=== PATIENT | female | born 1950 | race Caucasian/White ===

== ENCOUNTER → 2023-03-13 | Outpatient (CLI) | payer MEDICARE, MEDICAID ==
[2023-03-13 09:03] LABS: BASO # 0.1 10*3/uL (0.0-0.1); BASO % 0.7 % (0.0-1.0); EOS # 0.2 10*3/uL (0.0-0.4); HEMATOCRIT 40.6 % (37.0-47.0); LYMPH % 24.8 % (27.0-41.0); MEAN CELL VOLUME 93.3 fl (81.0-99.0); MEAN PLATELET VOLUME 9.1 fl (9.6-12.3); MONO # 0.7 10*3/uL (0.1-1.0); NEUT # 5.1 10*3/uL (2.3-7.9); PLATELET COUNT AUTOMATED 349 10*3/uL (130-400); RED BLOOD COUNT 4.35 10*6/uL (4.10-5.10); RED CELL DISTRI WIDTH 15.1 % (0-14.5)
[2023-03-13 09:38] LABS: POTASSIUM 4.1 mmol/L (3.4-5.1); TOTAL PROTEIN 7.5 gm/dL (6.0-8.0)
[2023-03-13 09:39] LABS: VITAMIN D, 25-HYDROXY 14.9 ng/mL (30-100)
== END | disposition home or self-care (01) ==
LOC: ZFOXEL 12:00
PROVIDERS: ATTEND Family Medicine
DX: I10 Essential (primary) hypertension (principal); D51.9 Vitamin B12 deficiency anemia, unspecified; D64.9 Anemia, unspecified; E55.9 Vitamin D deficiency, unspecified

== ENCOUNTER → 2023-03-20 | Outpatient (CLI) | payer MEDICARE, MEDICAID ==
[2023-03-20 09:02] LABS: BASO # 0.1 10*3/uL (0.0-0.1); BASO % 0.7 % (0.0-1.0); EOS # 0.1 10*3/uL (0.0-0.4); EOS % 1.6 % (1.0-4.0); HEMATOCRIT 37.3 % (37.0-47.0); LYMPH # 2.1 10*3/uL (1.3-4.4); LYMPH % 25.7 % (27.0-41.0); MEAN CELL VOLUME 90.5 fl (81.0-99.0); MEAN CORPUSCULAR HGB 29.6 pg (27.0-31.0); MEAN CORPUSCULAR HGB CONC 32.7 g/dl (33.0-37.0); MEAN PLATELET VOLUME 9.3 fl (9.6-12.3); MONO # 0.8 10*3/uL (0.1-1.0); MONO % 10.2 % (3.0-9.0); NEUT % 61.4 % (47.0-73.0); PLATELET COUNT AUTOMATED 313 10*3/uL (130-400); RED BLOOD COUNT 4.12 10*6/uL (4.10-5.10); RED CELL DISTRI WIDTH 15.1 % (0-14.5); WHITE BLOOD COUNT 8.1 10*3/uL (4.8-10.8)
[2023-03-20 10:02] LABS: POTASSIUM 4.6 mmol/L (3.4-5.1); TOTAL PROTEIN 6.4 gm/dL (6.0-8.0)
== END | disposition home or self-care (01) ==
LOC: ZFOXEL 12:00
PROVIDERS: ATTEND Family Medicine
DX: K51.90 Ulcerative colitis, unspecified, without complications (principal); I50.9 Heart failure, unspecified; D64.9 Anemia, unspecified; D51.9 Vitamin B12 deficiency anemia, unspecified; M32.9 Systemic lupus erythematosus, unspecified; E55.9 Vitamin D deficiency, unspecified

== ENCOUNTER 2023-11-17 09:20 | Emergency (ER) | payer MEDICARE ==
[~2023-11-17] VITALS: Ht 167.6 cm; Wt 90.7 kg
[~2023-11-17 09:20] MED LIST: 8 HOUR650 MG PO; ALBUTEROL2.5 MG/0.5 INH; ALEVE ARTHRITI100 GM SC; AMLODIPINE BESY10 MG PO; ANBESOL9 GM MM; AVPAK AZITHROM250 M1 PO; B121000 MCG/1 IM; BUSPIRONE10 MG PO; CEFDINIR300 MG PO; CHOLECALCIFEROL1 GM PO; CLOPIDOGREL75 MG PO; COREG6.25 MG PO; DICYCLOMINE HYD10 MG PO; EFFEXOR XR75 M1 PO; FERRETTS325 M1 PO; FUROSEMIDE40 MG PO; GAVISCON ES TA1 EACH PO; GLIMEPIRIDE4 M1 PO; HUMALOG KW200 UNIT/1; IMODIUM A-D2 M2 PO; INSULIN GL300 UNIT/1 SQ; ISOSORBIDE DINI30 MG PO; MAGNESIUM250 M3 PO; MESALAMINE DR400 MG PO; MONTELUKAST SOD10 MG PO; NATURE'S BLEND F1 MG PO; ONDANSETRON HYDR4 M1 PO; OXYCODON-ACETA1 EACH PO; POTASSIUM CHLO10 MEQ PO; PROTONIX40 MG PO; RANOLAZINE ER500 MG PO; SIMVASTATIN20 MG PO
[2023-11-17 09:45] LABS: BASO # 0.1 10*3/uL (0.0-0.1); BASO % 0.6 % (0.0-1.0); EOS # 0.1 10*3/uL (0.0-0.4); EOS % 1.4 % (1.0-4.0); HEMATOCRIT 38.4 % (37.0-47.0); LYMPH # 1.7 10*3/uL (1.3-4.4); LYMPH % 20.4 % (27.0-41.0); MEAN CELL VOLUME 94.8 fl (81.0-99.0); MEAN CORPUSCULAR HGB 31.4 pg (27.0-31.0); MEAN CORPUSCULAR HGB CONC 33.1 g/dl (33.0-37.0); MEAN PLATELET VOLUME 8.7 fl (9.6-12.3); MONO # 0.8 10*3/uL (0.1-1.0); MONO % 9.2 % (3.0-9.0); NEUT # 5.5 10*3/uL (2.3-7.9); NEUT % 67.8 % (47.0-73.0); PLATELET COUNT AUTOMATED 251 10*3/uL (130-400); RED BLOOD COUNT 4.05 10*6/uL (4.10-5.10); RED CELL DISTRI WIDTH 12.4 % (0-14.5); WHITE BLOOD COUNT 8.1 10*3/uL (4.8-10.8)
[2023-11-17 10:06] LABS: POTASSIUM 4.2 mmol/L (3.4-5.1); TOTAL PROTEIN 6.5 gm/dL (6.0-8.0)
== END 2023-11-17 12:30 | disposition home or self-care (01) ==
LOC: ED 09:20
PROVIDERS: Internal Medicine
DX: R07.89 Other chest pain (principal); Z53.29 Procedure and treatment not carried out because of patient's decision for other reasons; Z88.2 Allergy status to sulfonamides; Z88.1 Allergy status to other antibiotic agents; Z88.8 Allergy status to other drugs, medicaments and biological substances; Z90.49 Acquired absence of other specified parts of digestive tract; Z90.89 Acquired absence of other organs; Z98.890 Other specified postprocedural states; F32.A Depression, unspecified; F41.9 Anxiety disorder, unspecified; M19.90 Unspecified osteoarthritis, unspecified site; F03.90 Unspecified dementia, unspecified severity, without behavioral disturbance, psychotic disturbance, mood disturbance, and anxiety; E11.9 Type 2 diabetes mellitus without complications; J44.9 Chronic obstructive pulmonary disease, unspecified; E78.5 Hyperlipidemia, unspecified

== ENCOUNTER 2024-01-20 12:27 | Emergency (ER) | payer MEDICARE ==
[~2024-01-20] VITALS: Ht 167.6 cm; Wt 98.4 kg
[2024-01-20] MEDS ORDERED: Ondansetron Hydrochloride 4 MG/2 ML VIAL IV ONE (12:40)
[2024-01-20] MEDS ORDERED: MORPHINE Sulfate 2 MG/ML SYR IV ONE (12:40)
[2024-01-20 13:04] LABS: BASO % 0.5 % (0.0-1.0); EOS # 0.2 10*3/uL (0.0-0.4); HEMATOCRIT 38.2 % (37.0-47.0); LYMPH # 2.6 10*3/uL (1.3-4.4); LYMPH % 32.1 % (27.0-41.0); MEAN CELL VOLUME 93.4 fl (81.0-99.0); MEAN CORPUSCULAR HGB 30.8 pg (27.0-31.0); MEAN PLATELET VOLUME 8.7 fl (9.6-12.3); MONO # 1.2 10*3/uL (0.1-1.0); MONO % 14.5 % (3.0-9.0); NEUT # 4.1 10*3/uL (2.3-7.9); PLATELET COUNT AUTOMATED 274 10*3/uL (130-400); RED BLOOD COUNT 4.09 10*6/uL (4.10-5.10); WHITE BLOOD COUNT 8.2 10*3/uL (4.8-10.8)
[2024-01-20 13:27] LABS: POTASSIUM 4.1 mmol/L (3.4-5.1); TOTAL PROTEIN 6.8 gm/dL (6.0-8.0)
[2024-01-20] MEDS ORDERED: Ipratropium Brom3 ML INH (16:58)
[2024-01-20] MEDS ORDERED: VALSARTAN40 MG PO (17:00)
== END 2024-01-20 15:33 | disposition home or self-care (01) ==
LOC: ED 12:27
PROVIDERS: Emergency Medicine
DX: R07.89 Other chest pain (principal); I50.9 Heart failure, unspecified; E78.5 Hyperlipidemia, unspecified; J44.9 Chronic obstructive pulmonary disease, unspecified; F32.A Depression, unspecified; F41.9 Anxiety disorder, unspecified; E11.22 Type 2 diabetes mellitus with diabetic chronic kidney disease; I13.0 Hypertensive heart and chronic kidney disease with heart failure and stage 1 through stage 4 chronic kidney disease, or unspecified chronic kidney disease; N18.9 Chronic kidney disease, unspecified; F03.90 Unspecified dementia, unspecified severity, without behavioral disturbance, psychotic disturbance, mood disturbance, and anxiety; M19.90 Unspecified osteoarthritis, unspecified site; Z88.0 Allergy status to penicillin; Z88.2 Allergy status to sulfonamides; Z88.1 Allergy status to other antibiotic agents; Z88.8 Allergy status to other drugs, medicaments and biological substances; Z90.49 Acquired absence of other specified parts of digestive tract; Z90.89 Acquired absence of other organs; Z98.890 Other specified postprocedural states

== ENCOUNTER 2024-01-20 16:11 | Observation (INO) | payer MEDICARE ==
[~2024-01-20] VITALS: Ht 167.6 cm; Wt 101.6 kg
[2024-01-20 16:52] VITALS: BP 92/83
[2024-01-20] MEDS ORDERED: Ipratropium Brom3 ML INH (16:58)
[2024-01-20] MEDS ORDERED: VALSARTAN40 MG PO (17:00)
[2024-01-20] MEDS ORDERED: MORPHINE Sulfate 2 MG/ML SYR IV PRN (17:15)
[2024-01-20] MEDS ORDERED: BISACODYL 10 MG SUPP R PRN (17:15)
[2024-01-20] MEDS ORDERED: Magnesium Hydroxide 30 ML UDC PO PRN (17:15)
[2024-01-20] MEDS ORDERED: BISACODYL 5 MG TAB PO PRN (17:15)
[2024-01-20] MEDS ORDERED: ACETAMINOPHEN 325 MG TAB PO PRN (17:15)
[2024-01-20] MEDS ORDERED: Acetaminophen/Hydrocodone 5 MG/325 MG TABLET PO PRN (17:15)
[2024-01-20] MEDS ORDERED: SODIUM CHLORIDE 0.9% 1,000 ML IV ONE (17:30)
[2024-01-20] MEDS ORDERED: DEXTROSE 10 % IN WATER 250 ML IV PRN (17:30)
[2024-01-20] MEDS ORDERED: Pantoprazole Sodium 20 MG TAB PO SCH (18:00)
[2024-01-20] MEDS ORDERED: SUCRALFATE 1 GM TAB PO SCH (22:00)
[2024-01-20] MEDS ORDERED: INSULIN LISPRO 1 UNIT/0.01 ML SQ SCH (22:00)
[2024-01-20 22:37] VITALS: BP 108/60
[2024-01-20 23:42] VITALS: BP 106/48
[2024-01-21 02:25] VITALS: BP 129/74
[2024-01-21 05:21] LABS: POTASSIUM 4.6 mmol/L (3.4-5.1)
[2024-01-21 06:07] LABS: BASO # 0.1 10*3/uL (0.0-0.1); BASO % 0.7 % (0.0-1.0); EOS # 0.2 10*3/uL (0.0-0.4); EOS % 2.9 % (1.0-4.0); HEMATOCRIT 37.2 % (37.0-47.0); LYMPH # 2.4 10*3/uL (1.3-4.4); LYMPH % 32.5 % (27.0-41.0); MEAN CELL VOLUME 93.9 fl (81.0-99.0); MEAN CORPUSCULAR HGB 31.3 pg (27.0-31.0); MEAN CORPUSCULAR HGB CONC 33.3 g/dl (33.0-37.0); MEAN PLATELET VOLUME 9.3 fl (9.6-12.3); MONO # 1.1 10*3/uL (0.1-1.0); MONO % 14.5 % (3.0-9.0); NEUT # 3.5 10*3/uL (2.3-7.9); NEUT % 48.6 % (47.0-73.0); PLATELET COUNT AUTOMATED 277 10*3/uL (130-400); RED BLOOD COUNT 3.96 10*6/uL (4.10-5.10); RED CELL DISTRI WIDTH 13.2 % (0-14.5); WHITE BLOOD COUNT 7.3 10*3/uL (4.8-10.8)
[2024-01-21] MEDS ORDERED: SODIUM CHLORIDE 0.9% 1,000 ML IV ONE (07:55)
[2024-01-21 09:38] VITALS: BP 124/79
[2024-01-21] MEDS ORDERED: Enoxaparin Sodium 40 MG/0.4 ML SYR SC SCH (10:00)
[2024-01-21] MEDS ORDERED: DICLOFENAC SODIUM 100 GM TUBE T PRN (21:10)
[2024-01-21] MEDS ORDERED: [UNRECOGNIZED DRUG - OTHER] PO PRN (21:10)
[2024-01-21] MEDS ORDERED: [UNRECOGNIZED DRUG - OTHER] T PRN (21:10)
[2024-01-21] MEDS ORDERED: MAGNESIUM CARBONATE PO PRN (21:10)
[2024-01-21] MEDS ORDERED: Loperamide Hydrochloride 2 MG CAP PO PRN (21:10)
[2024-01-21] MEDS ORDERED: Ondansetron Hydrochloride 4 MG TAB PO PRN (21:10)
[2024-01-21] MEDS ORDERED: Albuterol Sulf/Ipratropium 3 ML VIAL NEB SCH (21:15)
[2024-01-21] MEDS ORDERED: Ranolazine 500 MG TAB ER PO SCH (22:00)
[2024-01-21] MEDS ORDERED: CARVEDILOL 6.25 MG TAB PO SCH (22:00)
[2024-01-21] MEDS ORDERED: Dicyclomine Hydrochloride 10 MG CAP PO SCH (22:00)
[2024-01-21] MEDS ORDERED: busPIRone Hydrochloride 10 MG TAB PO SCH (22:00)
[2024-01-21] MEDS ORDERED: SIMVASTATIN 20 MG TAB PO SCH (22:00)
[2024-01-21 22:38] VITALS: BP 136/71
[2024-01-22 06:17] VITALS: BP 132/68
[2024-01-22 07:03] LABS: BASO # 0.1 10*3/uL (0.0-0.1); BASO % 0.5 % (0.0-1.0); EOS # 0.2 10*3/uL (0.0-0.4); EOS % 2.3 % (1.0-4.0); HEMATOCRIT 37.5 % (37.0-47.0); LYMPH # 1.8 10*3/uL (1.3-4.4); LYMPH % 18.9 % (27.0-41.0); MEAN CELL VOLUME 94.2 fl (81.0-99.0); MEAN CORPUSCULAR HGB 31.2 pg (27.0-31.0); MEAN CORPUSCULAR HGB CONC 33.1 g/dl (33.0-37.0); MEAN PLATELET VOLUME 9.2 fl (9.6-12.3); MONO # 1.1 10*3/uL (0.1-1.0); MONO % 11.5 % (3.0-9.0); NEUT # 6.3 10*3/uL (2.3-7.9); NEUT % 66.2 % (47.0-73.0); PLATELET COUNT AUTOMATED 273 10*3/uL (130-400); RED BLOOD COUNT 3.98 10*6/uL (4.10-5.10); RED CELL DISTRI WIDTH 12.9 % (0-14.5); WHITE BLOOD COUNT 9.5 10*3/uL (4.8-10.8)
[2024-01-22 07:25] LABS: POTASSIUM 4.3 mmol/L (3.4-5.1)
[2024-01-22 08:40] VITALS: BP 131/56
[2024-01-22] MEDS ORDERED: ISOSORBIDE MONONITRATE 30 MG TAB PO SCH (10:00)
[2024-01-22] MEDS ORDERED: MESALAMINE 400 MG TAB PO SCH (10:00)
[2024-01-22] MEDS ORDERED: Insulin Glargine, Recombinan 1 UNIT/0.01 ML SC SCH (10:00)
[2024-01-22] MEDS ORDERED: FUROSEMIDE 40 MG TAB PO SCH (10:00)
[2024-01-22] MEDS ORDERED: Clopidogrel Hydrogen Sulfate 75 MG TAB PO SCH (10:00)
[2024-01-22] MEDS ORDERED: FOLIC ACID 1 MG TAB PO SCH (10:00)
[2024-01-22] MEDS ORDERED: Montelukast Sodium 10 MG TAB PO SCH (10:00)
[2024-01-22] MEDS ORDERED: Venlafaxine Hydrochloride 75 MG CAP PO SCH (10:00)
[2024-01-22] MEDS ORDERED: OXYCODON-ACETA1 EACH PO (12:33)
== END 2024-01-22 14:15 ==
LOC: ED 16:11 → EDHOLD 16:22
PROVIDERS: Student in an Organized Health Care Education/Training Program; ADMIT Student in an Organized Health Care Education/Training Program; ATTEND Student in an Organized Health Care Education/Training Program
DX: R07.89 Other chest pain (principal); I95.9 Hypotension, unspecified; E87.1 Hypo-osmolality and hyponatremia; N17.0 Acute kidney failure with tubular necrosis; E83.52 Hypercalcemia; R79.89 Other specified abnormal findings of blood chemistry; I50.9 Heart failure, unspecified; J44.89 Other specified chronic obstructive pulmonary disease; M06.9 Rheumatoid arthritis, unspecified; E11.65 Type 2 diabetes mellitus with hyperglycemia; Z79.4 Long term (current) use of insulin

== ENCOUNTER → 2024-02-27 | Outpatient (CLI) | payer MEDICARE ==
[~2024-02-27] MED LIST changes: +Ipratropium Brom3 ML INH; +VALSARTAN40 MG PO
== END | disposition home or self-care (01) ==
LOC: MAMMO 13:30
PROVIDERS: ATTEND Family Medicine
DX: R92.2 Inconclusive mammogram (principal)

== ENCOUNTER 2024-12-29 11:11 | Emergency (ER) | payer MEDICARE ==
[2024-12-29] MEDS ORDERED: COMBIGAN 0.2%-010 ML OP (11:32)
[2024-12-29] MEDS ORDERED: LANTUS SOL100 UNIT/1 SC (11:35)
[2024-12-29] MEDS ORDERED: FEROSUL325 MG PO (11:36)
[2024-12-29] MEDS ORDERED: VITAMIN D3125 MCG PO (11:37)
[2024-12-29] MEDS ORDERED: CLARITIN10 MG PO (11:39)
[2024-12-29] MEDS ORDERED: IMDUR SA30 MG PO (11:40)
[2024-12-29] MEDS ORDERED: NYSTATIN CREAM15 GM T (11:43)
[2024-12-29] MEDS ORDERED: VISTARIL25 MG PO (11:45)
[2024-12-29] MEDS ORDERED: CALMOSEPTINE OI71 GM T (11:49)
== END 2024-12-29 14:17 | disposition home or self-care (01) ==
LOC: ED 11:11
DX: S46.912A Strain of unspecified muscle, fascia and tendon at shoulder and upper arm level, left arm, initial encounter (principal); S80.212A Abrasion, left knee, initial encounter; S09.90XA Unspecified injury of head, initial encounter; M19.90 Unspecified osteoarthritis, unspecified site; Z90.49 Acquired absence of other specified parts of digestive tract; Z90.89 Acquired absence of other organs; Z87.891 Personal history of nicotine dependence; Z88.0 Allergy status to penicillin; Z88.1 Allergy status to other antibiotic agents; Z88.5 Allergy status to narcotic agent; Z88.2 Allergy status to sulfonamides; Z88.8 Allergy status to other drugs, medicaments and biological substances; W01.0XXA Fall on same level from slipping, tripping and stumbling without subsequent striking against object, initial encounter; Y93.89 Activity, other specified; Y92.89 Other specified places as the place of occurrence of the external cause; Y99.8 Other external cause status

== ENCOUNTER 2025-01-01 13:36 | Emergency (ER) | payer MEDICARE ==
[~2025-01-01] VITALS: Ht 165.1 cm; Wt 91.6 kg
[~2025-01-01 13:36] MED LIST changes: +CALMOSEPTINE OI71 GM T; +CLARITIN10 MG PO; +COMBIGAN 0.2%-010 ML OP; +FEROSUL325 MG PO; +IMDUR SA30 MG PO; +LANTUS SOL100 UNIT/1 SC; +NYSTATIN CREAM15 GM T; +VISTARIL25 MG PO; +VITAMIN D3125 MCG PO
[2025-01-01] MEDS ORDERED: SODIUM CHLORIDE 0.9% 500 ML IV ONE (13:55)
[2025-01-01 14:09] LABS: BASO # 0.1 10*3/uL (0.0-0.1); BASO % 0.6 % (0.0-1.0); EOS # 0.1 10*3/uL (0.0-0.4); EOS % 1.5 % (1.0-4.0); MEAN CELL VOLUME 93.2 fl (81.0-99.0); MEAN CORPUSCULAR HGB 30.9 pg (27.0-31.0); MEAN PLATELET VOLUME 8.5 fl (9.6-12.3); MONO # 0.9 10*3/uL (0.1-1.0); MONO % 11.3 % (3.0-9.0); NEUT # 4.4 10*3/uL (2.3-7.9); NEUT % 54.5 % (47.0-73.0); NUCLEATED RED BLOOD CELL 0.0 % (0.0-0.0); NUCLEATED RED BLOOD CELL 0.0 10*3/uL (0.0-0.0); PLATELET COUNT AUTOMATED 266 10*3/uL (130-400); RED CELL DISTRI WIDTH 11.7 % (0-14.5)
[2025-01-01 14:37] LABS: BUN 32.0 mg/dl (9-23)
[2025-01-01 16:03] LABS: BILIRUBIN Negative (Negative); BLOOD Negative (Negative); CLARITY Cloudy (Clear); COLOR Yellow (Yellow); KETONE Negative (Negative); LEUKO ESTERASE 3+ (Negative); NITRITE Negative (Negative); PH 5.0 (4.5-8.0); SPECIFIC GRAVITY 1.010 (1.001-1.030); UROBILINOGEN 0.2 E.U./dl (0.0-1.0)
[2025-01-01] MEDS ORDERED: Nitrofurantoin Monohydrate/N 100 MG CAP PO ONE (16:10)
[2025-01-01 16:15] LABS: BACTERIA 3+; WBC 51-100 wbc/hpf (0-5)
[2025-01-01] MEDS ORDERED: MACROBID100 M1 PO (16:16)
== END 2025-01-01 17:45 | disposition home or self-care (01) ==
LOC: ED 13:36
PROVIDERS: Nurse Practitioner Family
DX: R29.6 Repeated falls (principal); N30.00 Acute cystitis without hematuria; E11.9 Type 2 diabetes mellitus without complications; E78.5 Hyperlipidemia, unspecified; J44.9 Chronic obstructive pulmonary disease, unspecified; F03.90 Unspecified dementia, unspecified severity, without behavioral disturbance, psychotic disturbance, mood disturbance, and anxiety; I50.9 Heart failure, unspecified; F32.A Depression, unspecified; Z87.891 Personal history of nicotine dependence; Z90.49 Acquired absence of other specified parts of digestive tract; Z90.89 Acquired absence of other organs; Z88.0 Allergy status to penicillin; Z88.2 Allergy status to sulfonamides; Z88.8 Allergy status to other drugs, medicaments and biological substances

== ENCOUNTER 2025-03-22 18:29 | Inpatient (IN) | payer MEDICARE ==
[~2025-03-22] VITALS: Ht 167.6 cm; Wt 95.0 kg
[~2025-03-22 18:29] MED LIST changes: +EPIPEN 2-P0.3 MG/0.3 IJ; +Econopred Plus 15 ML OPH; +MACROBID100 M1 PO; +MAGNESIUM250 M1 PO; +MILK OF MA400 MG/51 PO; +NAMENDA-5 PO; +OFLOXACIN 10 ML10 M2 OD; +OMNICEF300 MG PO; +Ocuflox 0.3% 5 M5 ML OPH; +PAIN RELIEVER650 MG PO; +PRED FORTE5 ML OD; +RIVASTIGMINE1 EACH T; +TOBRADEX 0.3-03.5 GM OD; +VICTOZA 2-0.6 MG/0.1 SQ; +VITAMIN C500 M6 PO; +[UNRECOGNIZED DRUG - OTHER] OPH
[2025-03-22 18:35] VITALS: BP 153/72
[2025-03-22 19:08] LABS: BASO # 0.1 10*3/uL (0.0-0.1); BASO % 0.8 % (0.0-1.0); EOS # 0.2 10*3/uL (0.0-0.4); EOS % 2.5 % (1.0-4.0); MEAN CELL VOLUME 94.1 fl (81.0-99.0); MEAN CORPUSCULAR HGB 31.0 pg (27.0-31.0); MEAN PLATELET VOLUME 8.5 fl (9.6-12.3); MONO # 1.1 10*3/uL (0.1-1.0); MONO % 12.3 % (3.0-9.0); NEUT # 4.6 10*3/uL (2.3-7.9); NEUT % 52.9 % (47.0-73.0); NUCLEATED RED BLOOD CELL 0.0 % (0.0-0.0); NUCLEATED RED BLOOD CELL 0.0 10*3/uL (0.0-0.0); PLATELET COUNT AUTOMATED 312 10*3/uL (130-400); RED CELL DISTRI WIDTH 12.8 % (0-14.5)
[2025-03-22 19:29] LABS: BUN 21.0 mg/dl (9-23)
[2025-03-22] MEDS ORDERED: MAGNESIUM SULFATE 50 ML IV ONE (21:10)
[2025-03-22 21:27] VITALS: BP 117/56
[2025-03-22] MEDS ORDERED: BISACODYL 10 MG SUPP R PRN (22:50)
[2025-03-22] MEDS ORDERED: ACETAMINOPHEN 325 MG TAB PO PRN (22:50)
[2025-03-22] MEDS ORDERED: ACETAMINOPHEN 650 MG SUPP R PRN (22:50)
[2025-03-22] MEDS ORDERED: Ondansetron Hydrochloride 4 MG/2 ML VIAL IV PRN (22:50)
[2025-03-22] MEDS ORDERED: BISACODYL 5 MG TAB PO PRN (22:50)
[2025-03-22] MEDS ORDERED: Acetaminophen/Hydrocodone 5 MG/325 MG TABLET PO PRN (22:50)
[2025-03-22] MEDS ORDERED: DEXTROSE 50% 25 GM/50 ML VIAL IV PRN (23:10)
[2025-03-22] MEDS ORDERED: OXYCODON-ACETA1 EACH PO (23:30)
[2025-03-22] MEDS ORDERED: NYSTATIN15 GM T (23:30)
[2025-03-22 23:50] VITALS: BP 144/65
[2025-03-23 06:22] LABS: ACT PARTIAL THROMBO TIME 30.7 SECONDS (20.0-32.1)
[2025-03-23 06:26] LABS: BASO # 0.1 10*3/uL (0.0-0.1); BASO % 0.7 % (0.0-1.0); EOS # 0.3 10*3/uL (0.0-0.4); EOS % 3.1 % (1.0-4.0); MEAN CELL VOLUME 93.9 fl (81.0-99.0); MEAN CORPUSCULAR HGB 30.9 pg (27.0-31.0); MEAN PLATELET VOLUME 9.0 fl (9.6-12.3); MONO # 1.2 10*3/uL (0.1-1.0); MONO % 14.2 % (3.0-9.0); NEUT # 4.1 10*3/uL (2.3-7.9); NEUT % 50.8 % (47.0-73.0); NUCLEATED RED BLOOD CELL 0.0 % (0.0-0.0); NUCLEATED RED BLOOD CELL 0.0 10*3/uL (0.0-0.0); PLATELET COUNT AUTOMATED 333 10*3/uL (130-400); RED CELL DISTRI WIDTH 13.1 % (0-14.5)
[2025-03-23 06:42] LABS: BUN 21.0 mg/dl (9-23); FREE T4 1.24 ng/dl (0.89-1.76); LDL CHOLESTEROL 86.0 mg/dL (9-159); SGPT/ALT 12.0 U/L (5-49)
[2025-03-23] MEDS ORDERED: INSULIN LISPRO 1 UNIT/0.01 ML SQ SCH (07:30)
[2025-03-23 08:00] VITALS: BP 144/62
[2025-03-23 08:43] LABS: VITAMIN D, 25-HYDROXY 69.4 ng/mL (30-100)
[2025-03-23] MEDS ORDERED: FOAM BANDAGE 1 EACH BANDAGE T ONE (09:18)
[2025-03-23] MEDS ORDERED: PETROLATUM 42% 100 GM JAR T SCH ×2 (11:10→22:00)
[2025-03-23 12:00] VITALS: BP 107/41
[2025-03-23 16:00] VITALS: BP 110/45
[2025-03-23] MEDS ORDERED: CEFEPIME HCL IN DEXTROSE 5 % 50 ML IV SCH (18:00)
[2025-03-23] MEDS ORDERED: FUROSEMIDE 40 MG TAB PO SCH (18:00)
[2025-03-23 20:00] VITALS: BP 136/71
[2025-03-23] MEDS ORDERED: Memantine Hydrochloride 5 MG TAB PO SCH (22:00)
[2025-03-23] MEDS ORDERED: CARVEDILOL 6.25 MG TAB PO SCH (22:00)
[2025-03-23] MEDS ORDERED: MESALAMINE 400 MG TAB PO SCH (22:00)
[2025-03-23] MEDS ORDERED: Ranolazine 500 MG TAB ER PO SCH (22:00)
[2025-03-23] MEDS ORDERED: SIMVASTATIN 20 MG TAB PO SCH (22:00)
[2025-03-23] MEDS ORDERED: Dicyclomine Hydrochloride 10 MG CAP PO SCH (22:00)
[2025-03-24] VITALS: BP 120/61
[2025-03-24 06:50] LABS: BASO # 0.1 10*3/uL (0.0-0.1); BASO % 0.8 % (0.0-1.0); EOS # 0.3 10*3/uL (0.0-0.4); EOS % 3.3 % (1.0-4.0); MEAN CELL VOLUME 94.7 fl (81.0-99.0); MEAN CORPUSCULAR HGB 30.3 pg (27.0-31.0); MEAN PLATELET VOLUME 8.4 fl (9.6-12.3); MONO # 1.2 10*3/uL (0.1-1.0); MONO % 13.1 % (3.0-9.0); NEUT # 4.9 10*3/uL (2.3-7.9); NEUT % 52.5 % (47.0-73.0); NUCLEATED RED BLOOD CELL 0.0 % (0.0-0.0); NUCLEATED RED BLOOD CELL 0.0 10*3/uL (0.0-0.0); PLATELET COUNT AUTOMATED 326 10*3/uL (130-400); RED CELL DISTRI WIDTH 12.7 % (0-14.5)
[2025-03-24 07:18] LABS: BUN 19.0 mg/dl (9-23)
[2025-03-24 08:00] VITALS: BP 149/64
[2025-03-24] MEDS ORDERED: Rivastigmine Tartrate 4.6 MG/24 HR PATCH T SCH (10:00)
[2025-03-24] MEDS ORDERED: ISOSORBIDE MONONITRATE 30 MG TAB PO SCH (10:00)
[2025-03-24] MEDS ORDERED: Insulin Glargine, Recombinan 1 UNIT/0.01 ML SC SCH (10:00)
[2025-03-24] MEDS ORDERED: Venlafaxine Hydrochloride 75 MG CAP PO SCH (10:00)
[2025-03-24] MEDS ORDERED: Cholecalciferol 2,000 UNIT TABLET (50 MCG) PO SCH (10:00)
[2025-03-24] MEDS ORDERED: Clopidogrel Hydrogen Sulfate 75 MG TAB PO SCH (10:00)
[2025-03-24] MEDS ORDERED: LORATADINE 10 MG TAB PO SCH (10:00)
[2025-03-24] MEDS ORDERED: FOLIC ACID 1 MG TAB PO SCH (10:00)
[2025-03-24 11:59] VITALS: BP 149/77
[2025-03-24] MEDS ORDERED: PROTONIX40 MG PO (12:07)
[2025-03-24] MEDS ORDERED: CEPHALEXIN500 M1 PO (12:08)
[2025-03-24] MEDS ORDERED: AMMONIUM LACTATE 12% LOTION T SCH (22:00)
[2025-03-24] MEDS ORDERED: NYSTATIN 15 GM BOT T SCH (22:00)
== END 2025-03-24 18:00 | DRG 603 ==
LOC: ED 18:29 → 4E 21:58 → EDHOLD 21:58 → 5E 23:58 → 4E 03-24 06:51
PROVIDERS: Emergency Medicine; Family Medicine; Student in an Organized Health Care Education/Training Program; ADMIT Internal Medicine; ATTEND Internal Medicine
DX: L03.116 Cellulitis of left lower limb (principal); E44.0 Moderate protein-calorie malnutrition; F33.9 Major depressive disorder, recurrent, unspecified; I13.0 Hypertensive heart and chronic kidney disease with heart failure and stage 1 through stage 4 chronic kidney disease, or unspecified chronic kidney disease; J96.11 Chronic respiratory failure with hypoxia; R79.89 Other specified abnormal findings of blood chemistry; J44.89 Other specified chronic obstructive pulmonary disease; K52.9 Noninfective gastroenteritis and colitis, unspecified; I25.10 Atherosclerotic heart disease of native coronary artery without angina pectoris; K21.9 Gastro-esophageal reflux disease without esophagitis; F03.A0 Unspecified dementia, mild, without behavioral disturbance, psychotic disturbance, mood disturbance, and anxiety; E11.22 Type 2 diabetes mellitus with diabetic chronic kidney disease; N18.32 Chronic kidney disease, stage 3b; I50.9 Heart failure, unspecified; F41.1 Generalized anxiety disorder; E78.2 Mixed hyperlipidemia; G47.33 Obstructive sleep apnea (adult) (pediatric); M06.9 Rheumatoid arthritis, unspecified; E83.42 Hypomagnesemia; E11.65 Type 2 diabetes mellitus with hyperglycemia; Z66 Do not resuscitate; Z88.0 Allergy status to penicillin; Z88.2 Allergy status to sulfonamides; Z91.040 Latex allergy status; Z90.49 Acquired absence of other specified parts of digestive tract; Z79.4 Long term (current) use of insulin; Z68.33 Body mass index [BMI] 33.0-33.9, adult

== ENCOUNTER 2025-04-10 15:43 | Emergency (ER) | payer MEDICARE ==
[~2025-04-10 15:43] MED LIST changes: +CEPHALEXIN500 M1 PO; +NYSTATIN15 GM T
[2025-04-10] MEDS ORDERED: ACETAMINOPHEN 325 MG TAB PO ONE (17:55)
== END 2025-04-10 19:05 | disposition home or self-care (01) ==
LOC: ED 15:43
DX: S16.1XXA Strain of muscle, fascia and tendon at neck level, initial encounter (principal); S09.90XA Unspecified injury of head, initial encounter; I10 Essential (primary) hypertension; K21.9 Gastro-esophageal reflux disease without esophagitis; E78.5 Hyperlipidemia, unspecified; F03.90 Unspecified dementia, unspecified severity, without behavioral disturbance, psychotic disturbance, mood disturbance, and anxiety; E11.9 Type 2 diabetes mellitus without complications; J45.909 Unspecified asthma, uncomplicated; Z91.013 Allergy to seafood; Z88.0 Allergy status to penicillin; Z88.2 Allergy status to sulfonamides; Z88.6 Allergy status to analgesic agent; Z91.040 Latex allergy status; Z88.8 Allergy status to other drugs, medicaments and biological substances; W19.XXXA Unspecified fall, initial encounter; Y93.89 Activity, other specified; Y92.89 Other specified places as the place of occurrence of the external cause; Y99.8 Other external cause status

== ENCOUNTER 2025-04-13 09:45 | Emergency (ER) | payer MEDICARE ==
[~2025-04-13] VITALS: Ht 160 cm; Wt 96.2 kg
[2025-04-13] MEDS ORDERED: LIPITOR40 MG PO (10:01)
[2025-04-13] MEDS ORDERED: HYDROCODONE-AC1 EAC1 PO (10:01)
[2025-04-13 10:20] LABS: BASO # 0.0 10*3/uL (0.0-0.1); BASO % 0.4 % (0.0-1.0); EOS # 0.3 10*3/uL (0.0-0.4); EOS % 2.6 % (1.0-4.0); MEAN CELL VOLUME 97.2 fl (81.0-99.0); MEAN CORPUSCULAR HGB 30.8 pg (27.0-31.0); MEAN PLATELET VOLUME 8.3 fl (9.6-12.3); MONO # 0.9 10*3/uL (0.1-1.0); MONO % 9.6 % (3.0-9.0); NEUT # 6.4 10*3/uL (2.3-7.9); NEUT % 67.9 % (47.0-73.0); NUCLEATED RED BLOOD CELL 0.0 % (0.0-0.0); NUCLEATED RED BLOOD CELL 0.0 10*3/uL (0.0-0.0); PLATELET COUNT AUTOMATED 233 10*3/uL (130-400); RED CELL DISTRI WIDTH 12.9 % (0-14.5)
[2025-04-13 10:46] LABS: BUN 33.0 mg/dl (9-23)
== END 2025-04-13 14:16 | disposition home or self-care (01) ==
LOC: ED 09:45
PROVIDERS: Emergency Medicine
DX: H57.02 Anisocoria (principal); D64.9 Anemia, unspecified; E11.22 Type 2 diabetes mellitus with diabetic chronic kidney disease; F41.9 Anxiety disorder, unspecified; F32.A Depression, unspecified; M19.90 Unspecified osteoarthritis, unspecified site; J45.909 Unspecified asthma, uncomplicated; F03.90 Unspecified dementia, unspecified severity, without behavioral disturbance, psychotic disturbance, mood disturbance, and anxiety; I50.9 Heart failure, unspecified

== ENCOUNTER 2025-04-27 16:08 | Emergency (ER) | payer MEDICARE ==
[~2025-04-27 16:08] MED LIST changes: +HYDROCODONE-AC1 EAC1 PO; +LIPITOR40 MG PO
== END 2025-04-27 17:25 | disposition home or self-care (01) ==
LOC: ED 16:08
DX: S16.1XXA Strain of muscle, fascia and tendon at neck level, initial encounter (principal); S09.90XA Unspecified injury of head, initial encounter; F03.90 Unspecified dementia, unspecified severity, without behavioral disturbance, psychotic disturbance, mood disturbance, and anxiety; J44.89 Other specified chronic obstructive pulmonary disease; M19.90 Unspecified osteoarthritis, unspecified site; F41.9 Anxiety disorder, unspecified; E78.5 Hyperlipidemia, unspecified; Z87.891 Personal history of nicotine dependence; Z90.49 Acquired absence of other specified parts of digestive tract; Z90.89 Acquired absence of other organs; Z88.0 Allergy status to penicillin; Z88.2 Allergy status to sulfonamides; Z88.1 Allergy status to other antibiotic agents; Z88.6 Allergy status to analgesic agent; Z88.8 Allergy status to other drugs, medicaments and biological substances; Z91.018 Allergy to other foods; Z91.040 Latex allergy status; Z91.013 Allergy to seafood; W19.XXXA Unspecified fall, initial encounter; Y93.89 Activity, other specified; Y92.89 Other specified places as the place of occurrence of the external cause; Y99.8 Other external cause status